=== PATIENT | female | born 1995 | race Caucasian/White ===

== ENCOUNTER 2017-02-05 22:49 | Emergency (ER) | payer BC, OTHER ==
[~2017-02-05] VITALS: Ht 160 cm; Wt 76.1 kg
[2017-02-05 22:53] VITALS: TEMP 36.6; Ht 160 cm; Wt 76.1 kg
[2017-02-05] MEDS ORDERED: IBUPROFEN 600 MG TAB PO STA (23:19)
[2017-02-06] VITALS: BP 120/63; PULSE 69; O2SAT 99
--- NOTE | 2017-02-06 04:18 | EMERGENCY ROOM VISIT NOTE ---
ED Visit Note First contact with patient: 23:03 CHIEF COMPLAINT: Wrist injury HISTORY OF PRESENT ILLNESS: This 21-year-old patient presents to the emergency department with family complaining of pain in the right wrist after falling a few days ago on it chasing her child. The patient is able to move their wrist. The patient states the pain is throbbing and 5/10. No laceration, no weakness. No numbness or tingling. The patient denies any other injury. The patient is able to move their fingers and elbow without difficulty. The patient has not had a previous fracture to this wrist. The patient has taken nothing for the pain. REVIEW OF SYSTEMS: A 6 system review of systems was performed with positives and pertinent negatives in the HPI. ALLERGIES: None MEDICATIONS: None PMH: None SOCIAL HISTORY: No drug use PHYSICAL EXAM: Vital Signs: Reviewed Nurse's notes, vital signs stable. GENERAL : Pleasant female, in no acute distress, but appears to be in pain, well- developed, well-neurished. NEURO: Alert and oriented to person place and time. Normal sensation to light and sharp touch. MUSCULOSKELETAL: There is no deformity of the right wrist. There is tenderness and edema over distal radius. There is minimal snuff box tenderness. Range of motion is intact. Patient has minimal tenderness over the hand There is no tenderness of the elbow, or fingers. Technical Sales Advisor strength 5/5. Radial pulse 2+. SKIN: Normal and intact. The hand is warm and well perfused with capillary refill less than 2 seconds. EMERGENCY DEPARTMENT COURSE: I examined the patient. An X-ray of the right hand and wrist was reviewed by myself and showed no fracture per my interpretation. A Velcro wrist splint was placed under my direction and the position was satisfactory. Neurovascular status rechecked and intact. Patient was advised to follow-up with orthopedics in a few days if symptoms persist or here in the ER sooner for severe pain, numbness, tingling, worsening signs or symptoms or as needed. The patient was discharged home in good condition. DIAGNOSIS: Right wrist sprain DISCHARGE INSTRUCTIONS & TREATMENT: As below Current/Historical Medications Miscellaneous Medications None (Patient States No Home Meds) Allergies Coded Allergies: No Known Allergies (Unverified , 02/09/12) Vital Signs Date Time Temp Pulse Resp B/P (MAP) Pulse Ox O2 Delivery O2 Flow Rate FiO2 02/06/17 00:00 69 16 120/63 99 02/05/17 22:53 36.6 71 16 127/81 99 Room Air Medications Administered Medications (Trade) Dose Ordered Sig/Shawna Route Start Time Stop Time Status Last Admin Dose Admin Ibuprofen (Motrin Tab) 600 mg NOW STAT PO 02/05/17 23:19 02/05/17 23:20 DC 02/05/17 23:25 600 MG Departure Information Impression Primary Impression: Right wrist sprain Dispostion Home / Self-Care Condition GOOD Referrals Clem Muir D.O. Forms WORK / SCHOOL INSTRUCTIONS, HOME CARE DOCUMENTATION FORM, IMPORTANT VISIT INFORMATION Patient Instructions My [facility] Additional Instructions Ibuprofen(Motrin, Advil) may be used for fever or pain. Use 600mg every six hours as needed. Take with food. Avoid using more than 2400mg in a 24 hour period. Do not use 2400mg per day for more than three consecutive days without physician direction. Prolonged inappropriate use can lead to stomach upset or ulcers. This medication can be taken if you need to drive, work, or perform activities which may be dangerous when taking narcotic pain medication. (AND/OR) Acetaminophen(Tylenol) may be used for fever or pain. Use 1000mg every six hours as needed. Avoid using more than 3000mg in a 24 hour period. This medication can be taken if you need to drive, work, or perform activities which may be dangerous when taking narcotic pain medication. Ice compresses for 20 minutes at a time four times daily for 2-3 days. Wear wrist splint for comfort. Do not have it so tight that you cannot feel your fingers. Rest and elevate your injury. Continue current medications. Return to the ER immediately for any numbness, tingling, severe pain, extreme swelling in the extremity or as needed. Call Orthopedics in 3-5 days if symptoms persist to arrange follow up for your injury.
--- NOTE | 2017-02-06 06:43 | DIAGNOSTIC IMAGING REPORT ---
RIGHT WRIST W/NAVICULAR MIN 3 VIEWS CLINICAL HISTORY: Pain following fall. COMPARISON: None FINDINGS: Alignment of the right wrist is anatomic. No acute fracture is identified. Scaphoid appears intact. IMPRESSION: No acute fracture or dislocation of the right wrist. Electronically signed by: Cullen Xie M.D. 02/06/2017 6:42 AM Dictated Date/Time: 02/06/2017 6:40 AM
--- NOTE | 2017-02-06 06:44 | DIAGNOSTIC IMAGING REPORT ---
RIGHT HAND MIN 3 VIEWS ROUTINE CLINICAL HISTORY: Right hand pain following fall. COMPARISON: None FINDINGS: Alignment of the right hand is in anatomic. No acute fracture is identified. Carpal bones are intact. IMPRESSION: No acute fracture or dislocation of the right hand. Electronically signed by: Cullen Xie M.D. 02/06/2017 6:43 AM Dictated Date/Time: 02/06/2017 6:42 AM
== END 2017-02-06 00:01 | disposition home or self-care (01) ==
LOC: C.EDB 22:51 → C.EDC 02-06 00:01
DX: S63.501A Unspecified sprain of right wrist, initial encounter (principal); W19.XXXA Unspecified fall, initial encounter